=== PATIENT | female | born 1955 | race Caucasian/White ===

== ENCOUNTER 2021-12-25 08:54 | Outpatient (CLI) | payer OTHER, SELFPAY ==
--- NOTE | 2021-12-25 09:17 | US_ITS ---
WS: [id number] ULTRASOUND RIGHT BREAST HISTORY: MASS OF R BREAST/HX OF BREAST CANCER , BILATERAL MASTECTOMY COMPARISON: None available. TECHNIQUE: 2-D and Doppler. Palpable area along the RIGHT chest wall near the 2:00 axis corresponds to a hypoechoic mass with low -level echoes measuring 1.7 x 2.1 x 1.5 cm. There is a tract that extends to the superficial soft tis coreen. There is through transmission. There is some very mild increased vascularity within the peripher y. US/US breast RT limited* [id number] IMPRESSION: BI-RADS: 3-Probably Benign FOLLOW-UP: See Report Superficial hypoechoic mass in the RIGHT chest wall at 2:00 is most likely a se baceous cyst due to the tract extending to the skin surface. Typically these ar e not biopsied as they may insite a significant inflammatory reaction. Surgical removal versus short-term interval ultrasound follow-up. Follow-up to err on t he side of caution due to the patient's history of malignancy.
== END 2021-12-25 08:55 | disposition home or self-care (01) ==
LOC: RAD 09:04
PROVIDERS: Family Provider Nurse Practitioner Family; Visit Provider Registered Nurse
DX: N63.10 Unspecified lump in the right breast, unspecified quadrant (principal); Z85.3 Personal history of malignant neoplasm of breast; Z90.13 Acquired absence of bilateral breasts and nipples
CPT/HCPCS: 76642

== ENCOUNTER 2022-01-07 14:46 | Outpatient (CLI) | payer OTHER, SELFPAY ==
--- NOTE | 2022-01-07 14:52 | US_ITS ---
WS: [id number] Pelvic ultrasound, 01/08/2022 Clinical Data: HX OF BREAST CANCER/FAMILY HX OF PERITONEAL CANCER Comparison: None. Findings: The uterus measures 6.3 cm x 3.7 cm x 2.3 cm. The endometrium is 0.3 cm. No intrauterine or abnormal intrauterine mass is seen. The ovaries were not imaged. There is no fluid in the cul-de-sac US/US transvaginal [id number] Impression: 1. Negative uterus. 2. Ovaries not imaged.
== END 2022-01-07 14:47 | disposition home or self-care (01) ==
LOC: RAD 14:48
PROVIDERS: Family Provider Nurse Practitioner Family; PCP Registered Nurse; Visit Provider Registered Nurse
DX: Z85.3 Personal history of malignant neoplasm of breast (principal); Z80.8 Family history of malignant neoplasm of other organs or systems
CPT/HCPCS: 76830

== ENCOUNTER 2022-02-02 07:29 | Outpatient (CLI) | payer OTHER, SELFPAY ==
--- NOTE | 2022-02-02 07:45 | US_ITS ---
WS: [id number] ULTRASOUND-GUIDED RIGHT BREAST BIOPSY CLINICAL INFORMATION: Breast mass COMPARISON: December 25, 2021 FINDINGS: The procedure including risks, benefits, and complications were discussed with the patient who agreed to proceed. Using sterile technique patient was prepped and draped in the usual sterile fashion. Aft er 1% lidocaine utilizing real-time ultrasound guidance 6 14-gauge cores were obtained of the RIGHT b reast lesion at the 2 o'clock position. Subsequently a titanium clip was placed in the biopsy cavity. No immediate complications. Pathology demonstrates A. Breast, right , 2:00, ultrasound-guided biopsy: - Invasive ductal carcinoma. - Rosario Sexton grade 3 (score 8). - Lymphovascular invasion identified. - Breast prognostic profile has been performed and will be reported separately. US/[place] [id number] IMPRESSION: 1. Uncomplicated ultrasound-guided RIGHT breast biopsy. 2. The pathology demonstrates INVASIVE DUCTAL CARCINOMA WITH LYMPHOVASCULAR IN VASION 3. Breast cancer prognostic profile pending. 4. RECOMMEND BREAST SURGERY CONSULTATION FOR RESECTION. BI-RADS: 6-Known Biopsy-Proven Malignancy FOLLOW UP: Surgical Biopsy Recommended
[2022-02-08 09:19] LABS: Miscellaneous Test See Scanned Lab Rpt
== END 2022-02-02 07:30 | disposition home or self-care (01) ==
LOC: RAD 07:34
PROVIDERS: PCP Registered Nurse; Visit Provider Surgery
DX: C50.211 Malignant neoplasm of upper-inner quadrant of right female breast (principal)
CPT/HCPCS: 10005; 19083; 88173; 88305; 88361; 88374

== ENCOUNTER 2022-02-11 08:12 | Oncology outpatient (recurring) (ONCR) | payer OTHER, SELFPAY | END 2022-02-18 23:59 | disposition home or self-care (01) | PROVIDERS: PCP Registered Nurse; Visit Provider Internal Medicine Hematology & Oncology | DX: C50.911 Malignant neoplasm of unspecified site of right female breast (principal); Z17.1 Estrogen receptor negative status [ER-] | CPT/HCPCS: 99204 ==

== ENCOUNTER 2022-03-04 09:28 | Day surgery (SDC) | payer OTHER, SELFPAY ==
[2022-03-04 10:07] VITALS: BP 166/79; PULSE 65; RESP 18; TEMP 36.3; O2SAT 96
[2022-03-04] MEDS: sodium chloride 0.9% 1,000 ML 30 ML IV (10:19)
--- NOTE | 2022-03-04 11:19 | W.PM.OPSFHP ---
Same Day Surgery H&P Indication for Procedure/HPI DATE OF PROCEDURE: March 04, 2022 CHIEF COMPLAINT/INDICATIONFOR SURGICAL PROCEDURE: Screening colonoscopy PREOP DIAGNOSIS: Screening colonoscopy PLANNED PROCEDURE: Operation Date: 03/04/22 11:15 Proposed Procedures p Colonoscopy 01057/z12.11(Not Applicable) - Kev Hoover MD 01/14/2022 This is a pleasant 66 years old female patient was recently seen in my practice to schedule a screening colonoscopy.? Patient comes today with incidental finding of a mass on the right chest wall particularly status post mastectomy with a TRAM flap, patient had history of left breast cancer and undergone bilateral mastectomies with bilateral TRAM flaps back in 1998. Previous breast biopsies yes Personal or family history of breast cancer extensive including 3 of her sisters Age of menarche 11.5 History of menstrual cycles regular History of control pills 2 to 3 years Obstetric history? A0 and no miscarriage Breast-feeding history 6 months total of both breasts Patient found herself a spot on her right breast area and subsequently she did undergo imaging studies in the form of ultrasound right breast. Superficial hypoechoic mass in the RIGHT chest wall at 2:00 is most likely a sebaceous cyst due to the tract extending to the skin surface. Typically these are not biopsied as they may insite a significant inflammatory reaction. Surgical removal versus short-term interval ultrasound follow-up. Follow-up to err on the side of caution due to? the patient's history of malignancy. Patient comes to my practice today with concerns that that could be a cancer.? She did not have any image guided biopsies yet. 02/08/2022 Patient comes today for follow-up status post ultrasound-guided biopsy of right pectoral area mass that showed; ?Breast, right , 2:00, ultrasound-guided biopsy: ? Invasive ductal carcinoma. ? Rosario Sexton grade 3 (score 8). ? Lymphovascular invasion identified. ? Breast prognostic profile has been performed and will be reported separately. I did receive a phone call today from the pathologist that the patient has triple negative.? Hormone receptors Patient reports that she never had history of breast cancer of the right breast but she did have one of the left breast, she reports that she had some sort of high-grade dysplasia of the right breast and at that time she decided to go for bilateral mastectomies and she did some sort of axillary lymph node dissection of the left axilla.? Unfortunately I do not have any available records.? All her procedures were done in [facility]. 03/04/2022 Patient comes today for screening colonoscopy ROS All systems have been reviewed negative except as for the above or per problem list. Medications/Allergies* Home Medications Medication Instructions Recorded Confirmed Type No Known Home Medications 12/28/21 03/03/22 History Allergies/Adverse Reactions Allergy/AdvReac Type Severity Reaction Status Date / Time No Known Allergies Allergy Verified 03/04/22 11:20 Current Medications: Generic Name Dose Route Start Last Admin Trade Name Freq PRN Reason Stop Dose Admin Sodium Chloride 1,000 mls @ 30 mls/hr 03/04/22 10:00 03/04/22 10:19 Sodium Chloride 0.9% IV 03/05/22 09:59 30 mls/hr .Q24H AICHA Administration Pertinent History/Comorbid Conditions* Medical History (Updated 02/28/22 @ 15:57 by Gisselle Zapata MD) Breast cancer, right breast Heart murmur History of abnormal cervical Pap smear History of breast cancer Surgical History (Updated 02/28/22 @ 15:57 by Gisselle Zapata MD) History of bilateral mastectomy 1998 with tram flap reconstruction. History of cryosurgery History of removal of cyst 1962- back S/P TRAM (transverse rectus abdominis muscle) flap breast reconstruction Family History (Updated 02/26/22 @ 09:32 by Doretha Lester LPN) Diabetes Father Grandfather Paternal CAD (coronary artery disease) Father Hyperlipidemia Sister Father Brother Breast cancer Sister Lft. Breast and 10 years later in her right breast, peritoneal Sister breast and peritoneal Hypertension Sister Brother Thyroid disease Sister Stroke Grandfather Paternal--mini strokes Denies family history of Clotting disorder Dementia Psychiatric illness Chronic kidney disease (CKD) Suicide Anesthesia complication Bleeding disorder Lung disease Social History Smoking and tobacco status: former smoker Second hand smoke exposure: No Alcohol intake: current Alcohol intake frequency: holidays/special occasions only Lives independently: Yes Household members: significant other and children Pertinent Exam Findings alert, oriented x 3, regular rate & rhythm and procedure specific exam findings (Abdominal examination nontender nondistended soft) Recommendations Surgery/Procedure today (Screening colonoscopy) Other Plans: Plan of care; After thorough history and physical examination and reviewing the chart, plan to perform screening colonoscopy. I discussed with the patient in details the risks,benefits,alternatives and indications.The risk of aspiration, bleeding, soft tissue injury, perforation of the colon and other potential concomitant complications were explained to the patient in details,also the potential need for Laproscoy/Laparotomy to repair any related complications including but not limited to colectomy and or Closotomy.The patient understood this well and did agree to proceed. Rationale was carefully and clearly discussed with the patient.Appropriate informed consent have been reviewed and signed All questions have been answered and all concerns have been addressed to patient's satisfaction. Verbal and written Instructions were given to the patient for colonoscopy prep Coding Level of Care Code Acute Glass Block Installer for Heron Jolley
--- NOTE | 2022-03-04 12:07 | ANES.PREANE2 ---
Pre-Anesthetic Assessment Height/Weight: Height 1.57 m Weight 70.307 kg Temp Pulse Resp BP Pulse Ox 97.3 F L 65 18 166/79 96 03/04/22 10:07 03/04/22 10:07 03/04/22 10:07 03/04/22 10:07 03/04/22 10:07 Preop Diagnosis: Screening colonoscopy Operation Date: 03/04/22 11:15 Proposed Procedures p Colonoscopy 96160/z12.11(Not Applicable) - Kev Hoover MD Familial anesthetic complications: none Last intake: Intake Last Liquid Date 03/03/22 Last Liquid Time 20:00 Last Solid Date 03/02/22 Last Solid Time 20:00 Social Alcohol and No tobacco Airway Submandibular: within normal limits Cervical ROM: within normal limits Mallampati: Class II Dentition: full Pulmonary None reported CV/HEM None reported None reported Hepatic None reported GI None reported Metabolic None reported Musc/skel None reported Neuropsych None reported Anesthetic Plan ASA status: 3 Anesthesia: MAC Other Pertinent Information history of breast cancer and recent reoccurrence of a primary breast cancer patient is referred to ST for treatment. Medications/Allergies Home Medications Medication Instructions Recorded Confirmed Last Taken Type No Known Home Medications 12/28/21 03/03/22 Unknown History Allergies Allergy/AdvReac Type Severity Reaction Status Date / Time No Known Allergies Allergy Verified 03/04/22 11:20 Current Medications Generic Name Dose Route Start Last Admin Trade Name Freq PRN Reason Stop Dose Admin Sodium Chloride 1,000 mls @ 30 mls/hr 03/04/22 10:00 03/04/22 10:19 Sodium Chloride 0.9% IV 03/05/22 09:59 30 mls/hr .Q24H AICHA Administration PFSH Anesthesia Medical History (Updated 02/28/22 @ 15:57 by Gisselle Zapata MD) Breast cancer, right breast Heart murmur History of abnormal cervical Pap smear History of breast cancer Surgical History (Updated 02/28/22 @ 15:57 by Gisselle Zapata MD) History of bilateral mastectomy 1998 with tram flap reconstruction. History of cryosurgery History of removal of cyst 1962- S/P TRAM (transverse rectus abdominis muscle) flap breast reconstruction Family History (Updated 02/26/22 @ 09:32 by Doretha Lester LPN) Sister Hypertension Breast cancer Lft. Breast and 10 years later in her right breast, peritoneal Hyperlipidemia Father CAD (coronary artery disease) Diabetes Hyperlipidemia Grandfather Diabetes Paternal Stroke Paternal--mini strokes Sister Breast cancer breast and peritoneal Thyroid disease Brother Hyperlipidemia Hypertension Denies family history of Clotting disorder Dementia Psychiatric illness Chronic kidney disease (CKD) Suicide Anesthesia complication Bleeding disorder Lung disease Social History Smoking and tobacco status: former smoker Second hand smoke exposure: No Alcohol intake: current Alcohol intake frequency: holidays/special occasions only Lives independently: Yes Household members: significant other and children Data Anesthesia Cardiac Studies: No Data to Display
[2022-03-04 12:33] VITALS: BP 147/87; PULSE 97; RESP 12; TEMP 36.6; O2SAT 98
[2022-03-04 12:48] VITALS: BP 160/106; PULSE 91; RESP 16; O2SAT 94
--- NOTE | 2022-03-04 14:50 | ANE.PACU2 ---
Inpatient post-anesthesia follow up: Airway intact: Yes Vital signs: Temperature 98 F Pulse Rate 91 Respiratory Rate 16 Blood Pressure 160/106 Pulse Oximetry 94 Oxygen Delivery Me thod Room Air Oxygen Flow Rate Fraction of Inspir ed Oxygen Hydration adequate: Yes Nausea and vomiting: No Pain level: 1 Mental status: Baseline
== END 2022-03-04 13:05 | disposition home or self-care (01) ==
PROVIDERS: PCP Registered Nurse; Visit Provider Surgery
PROC: 0DJD8ZZ Inspection of Lower Intestinal Tract, Via Natural or Artificial Opening Endoscopic (ICD-10-PCS; CPT 45378; principal; 2022-03-04 11:15)
DX: Z12.11 Encounter for screening for malignant neoplasm of colon (principal); K57.90 Diverticulosis of intestine, part unspecified, without perforation or abscess without bleeding; Z85.3 Personal history of malignant neoplasm of breast; Z87.891 Personal history of nicotine dependence
CPT/HCPCS: 45378; J2704; J7030

== ENCOUNTER 2022-03-18 09:16 | Oncology outpatient (recurring) (ONCR) | payer OTHER, SELFPAY ==
[2022-03-18 09:40] LABS: Basophils % 0.5 %; Eosinophils # 0.2 10^3/uL (0.0-0.8); Eosinophils % 2.3 %; Hematocrit 40.9 % (37.0-47.0); Lymphocytes # 0.7 10^3/uL (0.8-4.8); Lymphocytes % 10.7 %; Mean Corpuscular HGB Conc 34.2 g/dL (30.0-36.0); Mean Corpuscular Hemoglobin 29.8 pg (28.0-34.0); Mean Platelet Volume 9.6 fL (7.4-10.4); Monocytes # 0.5 10^3/uL (0.2-0.9); Monocytes % 8.4 %; Neutrophils % 77.9 %; Nucleated Red Blood Cells % 0 %; Platelet Count 210 10^3/cmm (130-400); Red Cell Distribution Width 12.5 % (12.1-15.1); White Blood Count 6.4 10^3/uL (4.0-10.0)
[2022-03-18 10:33] LABS: Alanine Aminotransferase 10 U/L (0-33); Albumin Level 4.4 g/dL (3.5-5.2); Alkaline Phosphatase 89 IU/L (35-105); Anion Gap 16.8 (5-19); Aspartate Amino Transferase 14 U/L (0-32); Blood Urea Nitrogen 12 mg/dL (8-23); Carbon Dioxide 27 mmol/L (22-29); Chloride 100 mmol/L (98-107); Globulin 2.8 g/dL (1.3-4.6); Glomerular Filtration Rate 84.2 mL/min (90-130); Glucose 92 mg/dL (65-115); Osmolality Calculated 289 mOsm/kg (285-295); Potassium 3.8 mmol/L (3.5-5.1); Sodium 140 mmol/L (136-145); Total Bilirubin 0.5 mg/dL (0.15-1.2); Total Protein 7.2 g/dL (6.6-8.7)
== END 2022-03-21 23:59 | disposition home or self-care (01) ==
PROVIDERS: PCP Registered Nurse; Visit Provider Internal Medicine Hematology & Oncology
DX: C50.911 Malignant neoplasm of unspecified site of right female breast (principal); R22.2 Localized swelling, mass and lump, trunk
CPT/HCPCS: 36415; 80053; 85025

== ENCOUNTER 2022-03-25 12:36 | Oncology outpatient (recurring) (ONCR) | payer OTHER, SELFPAY ==
--- NOTE | 2022-03-25 13:00 | USCV_ITS ---
Tiffany Aguayo Age: 66 Gender: F : 1955 Exam Date: 03/25/2022 13:22 Ordering Phys: Rosalba Contreras MD Technologist: DIPAK Exam Location: [facility] [place], [place] Indication: PRE CHEMO BP: 120 / 74 HR: 72 Rhythm: Sinus Technical Quality: Adequate MEASUREMENTS (Male / Female) Normal Values 2D ECHO LV Diastolic Diameter PLAX 3.5 cm 4.2 - 5.9 / 3.9 - 5.3 cm LV Systolic Diameter PLAX 2.1 cm IVS Diastolic Thickness 0.9 cm 0.6 - 1.0 / 0.6 - 0.9 cm IVS Systolic Thickness 1.0 cm LVPW Diastolic Thickness 0.9 cm 0.6 - 1.0 / 0.6 - 0.9 cm LVPW Systolic Thickness 1.0 cm LVOT Diameter 2.0 cm LV Ejection Fraction 2D Teich 70.9 % LV Ejection Fraction MOD 2C 61.4 % LV Ejection Fraction 2C AL 62.4 % LA Diameter 3.3 cm LA Width 3.5 cm LA Height 3.6 cm RA Width 3.1 cm RA Height 4.0 cm Aorta at Sinotubular Diameter 2.3 cm IVC Diameter 1.4 cm M-MODE Aortic Annulus Diameter 2.3 cm LA Ao Ratio MM 1.3 MV E Point Septal Separation 0.6 cm DOPPLER AV Peak Velocity 174.0 cm/s LVOT Peak Velocity 117.0 cm/s AV Area Cont Eq vti 2.3 cm squared AV Area Cont Eq pk 2.1 cm squared MV Peak Velocity 137.0 cm/s MV Area PHT 7.1 cm squared Mitral E to A Ratio 0.9 MV E' Velocity 46.0 cm/s Mitral E to MV E' Ratio 6.6 Mitral E to LV E' Lateral Ratio 7.3 Mitral E to LV E' Septal Ratio 6.1 TR Peak Velocity 223.6 cm/s TR Peak Gradient 20.0 mmHg TR Mean Velocity 193.7 cm/s TR Mean Gradient 15.3 mmHg TR Velocity Time Integral 61.0 cm Right Atrial Pressure 3.0 mmHg Pulmonary Artery Systolic Pressu 23.0 mmHg RV Acceleration Time 0.1 s RV Ejection Time 0.3 s RV AcT/ET 0.4 FINDINGS Left Ventricle Normal left ventricular size, systolic function and wall thickness, with no regional wall motion abnormalities. Left ventricular ejection fraction is estimated at 65 %. Normal diastolic function. Right Ventricle Normal right ventricular size and systolic function, RVSP 28 mmHg. Right Atrium Normal right atrial size. Right atrial pressure estimated at 3 mmHg. Left Atrium Normal left atrial size. Mitral Valve Structurally normal mitral valve. No mitral valve stenosis. Trace mitral valve regurgitation. Aortic Valve Structurally normal trileaflet aortic valve. No aortic valve stenosis. Mild aortic valve regurgitation. Tricuspid Valve Structurally normal tricuspid valve. No tricuspid valve stenosis. Trace to mild tricuspid valve regurgitation. Pulmonic Valve Structurally normal pulmonic valve. No pulmonary valve stenosis. Trace pulmonary valve regurgitation. Pericardium No pericardial effusion. Aorta Normal size aortic root and proximal ascending aorta. IVC Normal IVC dimension with >50% respiratory change of the inferior vena cava. CONCLUSIONS 1. Normal left ventricular size, systolic function and wall thickness, with no regional wall motion abnormalities. Left ventricular ejection fraction is estimated at 65 %. Normal diastolic function. 2. Normal right ventricular size and systolic function. 3. Mild aortic valve regurgitation. 4. Pulmonary artery pressure at 28 mmHg. 5. No prior similar studies to compare. Kalyn Brewster MD (Electronically Signed) Final Date: 25 March 2022 17:04 S
== END 2022-04-21 23:59 | disposition home or self-care (01) ==
LOC: RAD 12:37 → ONCMED 04-01 06:11
PROVIDERS: PCP Registered Nurse; Visit Provider Internal Medicine Hematology & Oncology
DX: C50.911 Malignant neoplasm of unspecified site of right female breast (principal); R22.2 Localized swelling, mass and lump, trunk
CPT/HCPCS: 93306

== ENCOUNTER 2022-04-12 08:02 | Day surgery (SDC) | payer OTHER, SELFPAY ==
[2022-04-09 16:57] VITALS: BMI 28.3
[2022-04-12] VITALS (15 sets, daily range): BP systolic 131–209; BP diastolic 71–101; PULSE 62–73; RESP 16–18; TEMP 36.1–36.6; O2SAT 95–100
--- NOTE | 2022-04-12 | SCC_ITS ---
Procedure done: 1. Placement of PowerPort via right subclavian vein 2. Fluoroscopic guidance and interpretation for placement of catheter 27 seconds of fluoroscopic guidance, for a cumulative dose of 5.12 mGy, was provided to Dr. Hoover by the radiology department. C-arm images of the chest were saved for the patient's permanent record. [facility]
--- NOTE | 2022-04-12 08:15 | SC_ITS ---
WS: [id number] INTRAOPERATIVE TECHNIQUE: 3 Spot fluoroscopic images for intraoperative purposes. FLUOROSCOPY TIME: 26.0 seconds CLINICAL INFORMATION: Powerport Placement COMPARISON: None. FINDINGS: RIGHT Port-A-Cath with tip in the proximal SVC. No visualized pneumothorax. SC/C-arm FL for CVA [id number] IMPRESSION: Images obtained for intraoperative purposes.
[2022-04-12] MEDS: sodium chloride 0.9% 1,000 ML 30 ML IV (08:36)
--- NOTE | 2022-04-12 08:54 | ANES.PREANE2 ---
Pre-Anesthetic Assessment Height/Weight: Height 1.57 m Weight 70.307 kg Temp Pulse Resp BP Pulse Ox O2 Del Method 98 F 70 16 209/96 100 04/12/22 08:21 04/12/22 08:21 04/12/22 08:21 04/12/22 08:21 04/12/22 08:21 04/12/22 08:21 Preop Diagnosis: Breast cancer Operation Date: 04/12/22 09:20 Proposed Procedures p Portacath Placement 53338,C50.911(Not Applicable) - Kev Hoover MD Familial anesthetic complications: none Was Beta Leslie taken within 24 hours: N/A Was Clonidine taken within 24 hours: N/A Last intake: Intake Last Liquid Date 04/11/22 Last Liquid Time 20:00 Last Solid Date 04/11/22 Last Solid Time 20:00 Social No alcohol and No tobacco Exam alert, oriented x 3, clear to auscultation bilaterally and regular rate & rhythm Airway Submandibular: within normal limits Cervical ROM: within normal limits Mallampati: Class I Dentition: chipped Comments: Comments: Chipped lower central incisor (left) History/ROS No significant complaints Pulmonary None reported CV/HEM Murmur and None reported TTE 03/25/22 CONCLUSIONS ?1. Normal left ventricular size, systolic function and wall ?thickness, with no regional wall motion abnormalities. Left ?ventricular ejection fraction is estimated at 65 %. Normal ?diastolic function. ?2. Normal right ventricular size and systolic function. ?3. Mild aortic valve regurgitation. ?4. Pulmonary artery pressure at 28 mmHg. ?5. No prior similar studies to compare. None reported Hepatic None reported GI None reported Metabolic None reported [facility] Breast cancer Neuropsych None reported Anesthetic Plan ASA status: 3 Anesthesia: Anesthesia Evaluation, General and MAC Other: We discussed risk and benefits of general anesthesia including PONV, sore throat (sometimes severe), corneal abrasion, positioning and peripheral nerve injuries, life threatening allergic reaction, post operative ICU admission requiring prolonged intubation, aspiration, stroke, heart attack, , and rare incidences of recall. I discussed with the patient risks, goals, and benefits of MAC and general anesthesia. We discussed spectrum of MAC anesthesia including conversion to general as well as possibility of recall of intraoperative stimuli including discomfort/pain. Patient consents to MAC or General pending further discussion with surgeon. Risk of > 500 ml blood loss (7ml/kg in children): No Medications/Allergies Home Medications Medication Instructions Recorded Confirmed Last Taken Type No Known Home Medications 04/09/22 04/09/22 Unknown History Allergies Allergy/AdvReac Type Severity Reaction Status Date / Time No Known Allergies Allergy Verified 04/12/22 08:20 Current Medications Generic Name Dose Route Start Last Admin Trade Name Sonya PRN Reason Stop Dose Admin Sodium Chloride 1,000 mls @ 30 mls/hr 04/12/22 08:15 04/12/22 08:36 Sodium Chloride 0.9% IV 04/13/22 08:14 30 mls/hr .Q24H AICHA Administration PFSH Anesthesia Medical History Breast cancer, right breast Heart murmur History of abnormal cervical Pap smear History of breast cancer Surgical History History of bilateral mastectomy 1998 with tram flap reconstruction. History of cryosurgery History of removal of cyst 1962- back S/P TRAM (transverse rectus abdominis muscle) flap breast reconstruction Family History Sister Hypertension Breast cancer Lft. Breast and 10 years later in her right breast, peritoneal Hyperlipidemia Father CAD (coronary artery disease) Diabetes Hyperlipidemia Grandfather Diabetes Paternal Stroke Paternal--mini strokes Sister Breast cancer breast and peritoneal Thyroid disease Brother Hyperlipidemia Hypertension Denies family history of Clotting disorder Dementia Psychiatric illness Chronic kidney disease (CKD) Suicide Anesthesia complication Bleeding disorder Lung disease Social History Smoking and tobacco status: former smoker Second hand smoke exposure: No Alcohol intake: current Alcohol intake frequency: holidays/special occasions only Lives independently: Yes Household members: significant other and children Data Anesthesia Cardiac Studies: Echocardiogram 03/25/22
--- NOTE | 2022-04-12 09:13 | W.PM.OPSUD ---
Surgery/Procedure H&P Update DATE OF PROCEDURE: April 12, 2022 DATE H&P PERFORMED: 03/31/22 H&P UPDATE INFORMATION: I have reviewed H&P completed within last 30 days, I have examined patient prior to procedure and No changes to prior documentation PREOP DIAGNOSIS: Breast cancer PRIMARY INDICATION FOR PROCEDURE: The same PLANNED PROCEDURE: Operation Date: 04/12/22 09:20 Proposed Procedures p Portacath Placement [id number],C50.911(Not Applicable) - Kev Hoover MD
[2022-04-12] MEDS: ceFAZolin 2,000 MG in sodium chloride 0.9% (plus) 50 ML 100 MG IV (09:33)
[2022-04-12] MEDS: lidocaine 2% INJ 20 mL INJECTION (09:51)
[2022-04-12] MEDS: heparin, porcine 1,000 unit/mL INJ 10 mL 9000 UNIT XX (09:55)
--- NOTE | 2022-04-12 10:11 | PM.OP ---
Operative Report Date of procedure: April 12, 2022 Pre-op diagnosis: Preop Diagnosis Breast cancer Post-op diagnosis: Normal anatomy of right subclavian vein Procedure done: 1. Placement of PowerPort via right subclavian vein 2. Fluoroscopic guidance and interpretation for placement of catheter Surgeon: Kev Hoover MD [employer] Planner: electronic equipment maint tech Anastasiya Valdes Anesthesia: MAC (CHEMICAL LIBRARIAN Shaquille Santos) Procedure: Patient was identified in the holding area and taken to the operative room and placed in supine position IV propofol was given by the anesthesia provider ,both arms were tucked,Time-out was done verifying the patient's name/date of /planned procedure and destination after the procedure, all were in agreement. SCDs confirmed to be functioning, preoperative antibiotics administered per protocol, and beta ortiz protocol was confirmed, appropriate positioning of the patient was done by me. Medications were reviewed to assess for anticoagulant usage. Risks and benefits and prevention of central line associated blood stream infection (CLABSI) were discussed with the patient/CPOA, and a consent was obtained. Monitors were in place and monitored throughout the procedure. All necessary supplies were available prior to start. Hand hygiene was completed prior to starting. Maximum barrier technique was utilized including a sterile gown, sterile gloves with a hat and mask. Site was was prepped with [chlorhexidine] and a full body drape was placed. 5 mL of 2% lidocaine was injected into the skin with a 25 gauge needle. Prep& drape was done under the usual sterile technique, lidocaine 2% was injected at the site of the stick, started by right sub-clavian vein stick that retrieved venous blood was obtained from the first stick, a guide wire was then threaded and under the guidance of fluoroscopy position was confirmed to be in the IVC and my interpretation, there were no PVC changes, at that point the guide wire was secured to the drapes with a hemostat and the needle was taken out, attention was then deviated towards creation of a pocket for the port were lidocaine 2% was injected using an 15 blade knife skin incision was created dissection using the Bovie to create a pocket for the Power Port to be accommodated. Hemostasis was secured, after the port being appropriately flushed it was inserted into the pocket and a tunneler was used to accommodate the catheter of the port catheter to be delivered through the incision first created at the site of the stick, at that point under fluoroscopy an estimated length was measured for the catheter and was cut at the designed level, followed by that a dilator with the sheath introduced onto the guide wire the dilator and the wire were retrieved and the catheter of the port was introduced via the sheath where it was peeled off and the catheter maintained to be in the SVC that was confirmed with fluoroscopy, and the fluoroscopy interpretation was done by me throughout the entire procedure. The port was kept in its pocket,3-0 Vicryl deep subdermal interrupted sutures, skin was then closed by 4-0 Monocryl as subcuticular closure.The port was appropriately flushed with heparin and venous blood was withdrawn without difficulty.The stick site was closed by 4-0 Monocryl and Dermabond was used followed by dressing.Count was correct at the end of the procedure.Patient tolerated the procedure well was taken to the recovery area. I was present for the whole entire procedure. Position of the catheter was checked with a postoperative chest x-ray and it was in good position without evidence of pneumothorax. Of note, I elected to place the port at the right subclavian vein as the patient had a previous left axillary lymph node dissection.
--- NOTE | 2022-04-12 10:13 | XRR_ITS ---
PROCEDURE INFORMATION: Exam: XR Chest Exam date and time: 04/12/2022 10:21 AM Age: 66 years old Clinical indication: Device placement; Other: Right subclavian vein powerport; Prior surgery; Surgery date: Post-operative (0-2 days); Additional info: Status postplacement of right subclavian vein powerport TECHNIQUE: Imaging protocol: Radiologic exam of the chest. Views: 1 view. COMPARISON: No relevant prior studies available. FINDINGS: Tubes, catheters and devices: A MediPort catheter is present with the tip projecting in the SVC. Lungs: Unremarkable. No consolidation. Pleural spaces: Unremarkable. No pleural effusion. No pneumothorax. Heart/Mediastinum: Unremarkable. No cardiomegaly. Bones/joints: Unremarkable. Soft tissues: Surgical clips project on the chest and left axilla. XR/XR chest 1V portable [id number] IMPRESSION: No acute abnormality.
[2022-04-12] MEDS: hyDRALAzine 20 mg/mL INJ 1 mL 10 MG IVP ×2 (10:19→10:50)
[2022-04-12] MEDS: ondansetron 2 mg/ML SDV 2 mL 4 MG IVP (11:31)
--- NOTE | 2022-04-12 12:10 | ANE.PACU2 ---
Inpatient post-anesthesia follow up: Airway intact: Yes Vital signs: Temperature 98 F Pulse Rate 73 Respiratory Rate 16 Blood Pressure 139/75 Pulse Oximetry 95 Oxygen Delivery Me thod Room Air Oxygen Flow Rate 6 Fraction of Inspir ed Oxygen Hydration adequate: Yes Nausea and vomiting: No Pain level: 1 Mental status: Baseline
== END 2022-04-12 12:10 | disposition home or self-care (01) ==
PROVIDERS: PCP Registered Nurse; Visit Provider Surgery
PROC: (CPT 36561; principal; 2022-04-12 09:10)
DX: C50.911 Malignant neoplasm of unspecified site of right female breast (principal); Z87.891 Personal history of nicotine dependence
CPT/HCPCS: 36561; 71045; 76000; 77001; C1788; J0360; J1644; J2250; J2405; J3010; J7030